=== PATIENT | female | born 1970 | race African-American/Black ===

== ENCOUNTER 2022-03-03 00:45 | Emergency (ER) | payer OTHER ==
[2022-03-03 01:09] VITALS: BP 110/71; PULSE 61; RESP 18; TEMP 97.7; BMI 25.8
[2022-03-03] MEDS ORDERED: IBUPROFEN 600 MG TABLET (FP) PO ONE ×2 (01:53→01:59)
[2022-03-03] MEDS ORDERED: ACETAMINOPHEN 500 MG TABLET (FP) PO ONE (01:53)
[2022-03-03] MEDS ORDERED: ACETAMINOPHEN 500 MG TABLET (FP) ONE (02:00)
== END 2022-03-03 03:22 | disposition home or self-care (01) ==
LOC: JER 00:45
DX: S99.921A Unspecified injury of right foot, initial encounter (principal); W22.8XXA Striking against or struck by other objects, initial encounter
CPT/HCPCS: 73610-TC-RT-FY; 73630-TC-RT-FY; 99283-25